=== PATIENT | female | born 1950 | race Caucasian/White ===

== ENCOUNTER 2018-10-16 06:50 | Day surgery (SDC) | payer MEDICARE ==
[~2018-10-16 06:50] MED LIST: Acetaminophen TAB* 325 MG PO PRN; Buffered Lidocaine 1% SYRIN* 1 ML/SYRINGE INTRADERM ONE
[2018-10-16] MEDS ORDERED: Midazolam* 1 MG/ML 2 ML VIAL (2 MG) ONE (08:19)
[2018-10-16 08:52] VITALS: BP 114/61
--- NOTE | 2018-10-16 09:34 | OP ---
DATE OF OPERATION: 10/16/2018. DATE OF : 1950. SURGEON: Amandeep Kendall M.D. PREOPERATIVE DIAGNOSIS: Cataract right eye with glaucoma. POSTOPERATIVE DIAGNOSIS: Cataract right eye with glaucoma. OPERATIVE PROCEDURE: Extracapsular cataract extraction with intraocular lens implant and iStent righ t eye. PROCEDURE: The patient was brought to the operating room after being given 1/2% Alcaine with epineph rine drops in the preoperative area. The eye was prepped and draped in the usual sterile fashion. S terile drape and eyelid speculum were placed. Again, topical 1/2% Alcaine with epinephrine was given . A paracentesis incision was made at the 9 o'clock position with the No.75 blade. Clear cornea inc ision 2.2 x 2.2-mm was created at the 12 o'clock position starting at the anterior limbus using the 2 .2-mm keratome. The anterior chamber was irrigated with 0.4 mL of 1% non-preservative intracameral l idocaine and filled with DisCoVisc. A capsulorrhexis was completed using the cystotome and the Utrat a forceps. Hydrodissection was performed with balanced salt solution. The lens nucleus was removed w ith the Phacoemulsification handpiece without incident. Cortex was removed with the irrigation-aspir ation handpiece. The capsular bag was re-inflated using DisCoVisc and an [id number] implant was inse rted with the shooter, followed by the two iStent inject devices placed at the 2 o'clock and 4 o'cloc k positions without difficulty. The irrigation-aspiration handpiece was used to remove all residual DisCoVisc. The eye was refilled with balanced salt solution and the wound checked and found to be wa tertight. Topical Maxitrol drops were given. [id number]/[facility] #: [id number]
[2018-10-16] MEDS ORDERED: Lidocaine 1%* 5 ML VIAL ONE (12:17)
[2018-10-16] MEDS ORDERED: Neomycin/Polymy/Dex OPTH.SUSP* MAXITROL 0.1% 5 ML ONE (12:17)
[2018-10-16] MEDS ORDERED: Phenylephrine 2.5% OPTH.SOL* 2 ML BTL ONE (12:17)
[2018-10-16] MEDS ORDERED: Lidocaine 2% EPI 1:200000 MPF*10-20 ML VIAL ONE (12:17)
[2018-10-16] MEDS ORDERED: Povidone Iodine 5% OPTH* 30 ML BTL ONE (12:17)
[2018-10-16] MEDS ORDERED: Ketorolac 0.5% OPHTH (NF) 0.5 % 5 ML BTL ONE (12:17)
[2018-10-16] MEDS ORDERED: acetaZOLAMIDE TAB* 250 MG ONE (12:17)
[2018-10-16] MEDS ORDERED: Cyclopentolate 1% OPTH.SOL* 2 ML BTL ONE (12:17)
[2018-10-16] MEDS ORDERED: Proparacaine 0.5% OPHTH.SOL* 15 ML BTL ONE (12:17)
== END 2018-10-16 08:56 | disposition home or self-care (01) ==
LOC: OREAST 06:50
PROVIDERS: ATTEND Specialist
DX: H25.11 Age-related nuclear cataract, right eye (principal); H40.1122 Primary open-angle glaucoma, left eye, moderate stage; J45.909 Unspecified asthma, uncomplicated
CPT/HCPCS: A9270-GY; C1783; J2250; V2632

== ENCOUNTER 2018-10-23 07:21 | Day surgery (SDC) | payer MEDICARE ==
[2018-10-23] MEDS ORDERED: Midazolam* 1 MG/ML 2 ML VIAL (2 MG) ONE ×2 (09:30→09:49)
[2018-10-23 10:16] VITALS: BP 131/74
[2018-10-23] MEDS ORDERED: Povidone Iodine 5% OPTH* 30 ML BTL ONE (10:44)
[2018-10-23] MEDS ORDERED: Proparacaine 0.5% OPHTH.SOL* 15 ML BTL ONE (10:44)
[2018-10-23] MEDS ORDERED: Cyclopentolate 1% OPTH.SOL* 2 ML BTL ONE (10:44)
[2018-10-23] MEDS ORDERED: Neomycin/Polymy/Dex OPTH.SUSP* MAXITROL 0.1% 5 ML ONE (10:44)
[2018-10-23] MEDS ORDERED: Lidocaine 1%* 5 ML VIAL ONE (10:44)
[2018-10-23] MEDS ORDERED: Phenylephrine 2.5% OPTH.SOL* 2 ML BTL ONE (10:44)
[2018-10-23] MEDS ORDERED: Ketorolac 0.5% OPHTH (NF) 0.5 % 5 ML BTL ONE (10:44)
[2018-10-23] MEDS ORDERED: acetaZOLAMIDE TAB* 250 MG ONE (10:44)
[2018-10-23] MEDS ORDERED: Lidocaine 2% EPI 1:200000 MPF*10-20 ML VIAL ONE (10:44)
--- NOTE | 2018-10-23 11:17 | OP ---
OPERATIVE NOTE: DATE OF OPERATION: 10/23/18 DATE OF : [birth year] SURGEON: Amandeep Kendall M.D. PREOPERATIVE DIAGNOSIS: Cataract, left eye, and glaucoma. POSTOPERATIVE DIAGNOSIS: Cataract, left eye, and glaucoma. OPERATIVE PROCEDURE: Extracapsular cataract extraction with intraocular lens implant and iStent, lef t eye. PROCEDURE: The patient was brought to the operating room after being given 1/2% Alcaine with epineph rine drops in the preoperative area. The eye was prepped and draped in the usual sterile fashion. S terile drape and eyelid speculum were placed. Again, topical 1/2% Alcaine with epinephrine was given . A paracentesis incision was made at the 3 o'clock position with the No.75 blade. Clear cornea inc ision 2.2 x 2.2-mm was created at the 6 o'clock position starting at the anterior limbus using the 2. 2-mm keratome. The anterior chamber was irrigated with 0.4 mL of 1% non-preservative intracameral li docaine and filled with DisCoVisc. A capsulorrhexis was completed using the cystotome and the Utrata forceps. Hydrodissection was performed with balanced salt solution. The lens nucleus was removed wi th the Phacoemulsification handpiece without incident. Cortex was removed with the irrigation-aspira tion handpiece. The capsular bag was re-inflated using DisCoVisc and an [id number] 18 implant was insert ed with the shooter. Prior to capsulorrhexis, the pupil was quite small, so a Malyugin ring was used to dilate the pupil, removed after the insertion of the implant and the iStent. The implant was fol lowed by an iStent inject G2M. It was inserted into the trabecular meshwork at the 2 and 4 o'clock p ositions. The irrigation-aspiration handpiece was used to remove all residual DisCoVisc. The eye wa s refilled with balanced salt solution and the wound checked and found to be watertight. Topical Max itrol drops were given. [id number]/[facility] #: [id number]
== END 2018-10-23 10:21 | disposition home or self-care (01) ==
LOC: OREAST 07:21
PROVIDERS: ATTEND Specialist
DX: H25.12 Age-related nuclear cataract, left eye (principal); H40.1121 Primary open-angle glaucoma, left eye, mild stage; J45.909 Unspecified asthma, uncomplicated; F32.9 Major depressive disorder, single episode, unspecified
CPT/HCPCS: A9270-GY; C1783; J2250; V2632

== ENCOUNTER 2019-08-23 10:58 | Emergency (ER) | payer MEDICARE ==
--- OUTSIDE RECORDS SUMMARY | 2019-08-23 11:07 | XMS REPORT | Continuity of Care Document ---
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 Medicine Problems Description No Information Available Social History Type Date Description Comments Sex Unknown Tobacco Use Start: Unknown Never Smoked Cigarettes Smoking Status Reviewed: 07/23/19 Never Smoked Cigarettes ETOH Use 7-10 alcoholic beverages per week Tobacco Use Start: Unknown Patient has never smoked Recreational Drug Use Denies Drug Use Exercise Type/Frequency Water Fitness 2-3 times per week for 45-60 minutes Exercise Type/Frequency Weight Training 1-2 times per week for 30 minutes Allergies, Adverse Reactions, Alerts Active Allergies Reaction Severity Comments Date NKDA 09/12/2013 Pollen 06/19/2019 Mold 06/19/2019 Tomatoes 06/19/2019 Soy 06/19/2019 Adhesive rash Mild 06/25/2019 Medications Active Medications SIG Qnty Indications Ordering Provider Date Trazodone HCL 25-50 mg daily by Unknown mouth for insomnia Diclofenac Sodium one tablet by Unknown 50mg mouth as needed Tablets SM Omeprazole Take one tablet Unknown 20mg Tablets by mouth daily Lamotrigine 300 MG Take one tablet Unknown by mouth daily Desvenlafaxine ER Take two tablets Unknown 100mg by mouth daily Tablets ER 24HR Azithromycin Take one tablet Unknown 250mg Tablets by mouth twice weekly Acetaminophen-Codeine take 1-2 tablets Unknown #3 by mouth for pain 300-30mg Tablets as needed Vitamin D3 Take one capsule Unknown 1000Unit by mouth daily Capsules Acidophilus Take one capsule Unknown Capsules by mouth daily Claritin 1 by mouth every Unknown 10mg Capsules day Multivitamins 1 by mouth every Unknown Capsules day Medications Administered in Office Medication SIG Qnty Indications Ordering Provider Date Celestone 3 mg and 3mg Sammy Liu MD 11/26/2018 Injection Celestone 3 mg and 3mg Sammy Liu MD 11/26/2018 Injection Depomedrol 80MG Betsy Soriano M.D. 10/09/2013 Injection Immunizations Description No Information Available Vital Signs Date Vital Result Comment 07/23/2019 10:03am Height 60 inches 5'0" Weight 158.00 lb Heart Rate 83 /min BP Systolic 116 mmHg BP Diastolic 74 mmHg Body Temperature 96.8 F O2 % BldC Oximetry 98 % BMI (Body Mass Index) 30.9 kg/m2 06/25/2019 1:12pm Height 60 inches 5'0" Weight 163.50 lb Heart Rate 79 /min BP Systolic 133 mmHg BP Diastolic 83 mmHg Body Temperature 97.9 F O2 % BldC Oximetry 97 % BMI (Body Mass Index) 31.9 kg/m2 Results Test Date Facility Test Result H/L Range Note Laboratory test 06/27/2019 [facility] CRP High 4.90 mg/L High <2.[address] [place] [address] [phone] Thyroperoxidase AB 1.08 IU/mL Normal <9 Thyroglobulin AB 0.0 IU/mL <4.0 Hemoglobin A1c (Glyco HGB) 5.8 % High 4.0-5.6 1 Copper, Serum 1.21 g/mL 0.75-1.45 2 Zinc Serum 0.78 g/mL 0.66-1.10 3 Heavy Metal Blool 06/27/2019 [facility] Arsenic 3 ng/mL 0-[address] [place] [address] [phone] Lead 1.1 g/dL 0.0-4.9 5 Mercury <1 ng/mL 0-9 6 Cadmium 0.2 ng/mL 0.0-4.[address] Address See Comment 8 [facility] [address] [facility] Guardian First Name HEATHER Yaoan Last Name JOSE MARTIN Venous/Capillary Heavy Metals Venous Patient Race WHITE Submitting Laboratory 9 Anti Gliadin Igg And Iga 06/27/2019 [facility] Gliadin IgG < 10.0 U 10 AB [address] [place] [address] [phone] Gliadin IgA <10.0 U 11 Celiac Hla 06/27/2019 [facility] Hla-Dqa1 SEE BELOW 12 [address] [place] [address] [phone] Hla-DQB1 SEE BELOW 13 Celiac Gene Pairs Present? Equivocal Celiac Gene Interpretation See Comment 14 Laboratory test 06/25/2019 [facility] Hemoglobin A1c <pending> finding [address] [facility] (Glyco HGB) [place] [address] [phone] CRP High Sensitivity <pending> Anti-Thyroid 06/25/2019 [facility] Thyroperoxidase AB <pending> Antibodies Screen [address] [place] [address] [phone] Thyroglobulin AB <pending> Laboratory test 06/25/2019 [facility] Copper, Serum <pending> finding [address] [place] [address] [phone] Zinc Serum <pending> 1 Therapeutic target for the treatment of diabetes mellitus patients is <7% HBA1C, and in selective patients <6.0%. Please refer to [place] [employer] diabetic care guidelines for further information. 2 ADDITIONAL INFORMATION This test was developed and its performance characteristics determined by [facility] in a manner consistent with CLIA requirements. This test has not been cleared or approved by the U.S. Food and Drug Administration. Test Performed by: [facility] - [address] [address] Cmo & President: Marvin Rojas M.D. Ph.D.; CLIA# [id number] 3 ADDITIONAL INFORMATION This test was developed and its performance characteristics determined by [facility] in a manner consistent with CLIA requirements. This test has not been cleared or approved by the U.S. Food and Drug Administration. Test Performed by: [facility] [employer] [place] [address] Cmo & President: Marvin Rojas M.D. Ph.D.; CLIA# [id number] 4 ADDITIONAL INFORMATION This test was developed and its performance characteristics determined by [facility] in a manner consistent with CLIA requirements. This test has not been cleared or approved by the U.S. Food and Drug Administration. 5 ADDITIONAL INFORMATION Testing performed by Inductively Coupled Plasma-Mass Spectrometry (ICP-MS). This test was developed and its performance characteristics determined by [facility] in a manner consistent with CLIA requirements. This test has not been cleared or approved by the U.S. Food and Drug Administration. 6 ADDITIONAL INFORMATION This test was developed and its performance characteristics determined by [facility] in a manner consistent with CLIA requirements. This test has not been cleared or approved by the U.S. Food and Drug Administration. 7 ADDITIONAL INFORMATION This test was developed and its performance characteristics determined by [facility] in a manner consistent with CLIA requirements. This test has not been cleared or approved by the U.S. Food and Drug Administration. 8 RESULT: [address] Test Performed by: [facility] [employer] [place] [address] [employer]mo & President: Marvin Rojas M.D. Ph.D.; CLIA# [id number] 10 REFERENCE VALUE <20.0 (Negative) Test Performed by: [facility] [employer] - [facility] [address] [place] [address] Cmo & President: Marvin Rojas M.D. Ph.D.; CLIA# [id number] 11 REFERENCE VALUE <20.0 (Negative) 12 RESULT: 02:01,04:01 REFERENCE VALUE Not Applicable 13 RESULT: 02:02,04:02 DQ Serologic Equivalent: 2,4 REFERENCE VALUE Not Applicable 14 While the patient lacks the gene pairs usually seen in celiac disease, there are rare exceptions in which celiac disease can occur with only one half of the gene pair (1% of all celiac) making celiac disease very unlikely. However, these genes can also be present in the normal population. ADDITIONAL INFORMATION Method: Molecular typing of HLA antigens performed using reverse SSOP and/or SSP methods, reported as serological equivalents and low to medium resolution molecular values. Test Performed by: [facility] - [address] [address] Cmo & President: Marvin Rojas M.D. Ph.D.; CLIA# [id number] Procedures Date Code Description Status 06/04/2019 77515 Shave Skin Lesion <.6CM Trunk/Arm/Leg Completed Medical Devices Description No Information Available Encounters Type Date Location Provider Dx Diagnosis Office Visit 06/25/2019 [facility] Snow Le, MEGHA R53.83 Other fatigue 1:00p [facility] M79.7 Fibromyalgia G89.4 Chronic pain syndrome K58.2 Mixed irritable bowel syndrome F32.9 Major depressive disorder, single episode, unspecified Office Visit 06/04/2019 10:30a [facility] Amy Roman, L82.1 Other seborrheic MD keratosis L81.4 Other melanin hyperpigmentation D22.5 Melanocytic nevi of trunk L73.8 Other specified follicular disorders L30.9 Dermatitis, unspecified D22.61 Melanocytic nevi of right upper limb, including shoulder Assessments Date Code Description Provider 07/23/2019 R73.03 Prediabetes Snow Rey, PROOFSHEET CORRECTOR 07/23/2019 R53.83 Other fatigue Snow Le, PROOFSHEET CORRECTOR 07/23/2019 M79.7 Fibromyalgia Snow Le, PROOFSHEET CORRECTOR 07/23/2019 K58.2 Mixed irritable bowel syndrome Snow Le, PROOFSHEET CORRECTOR 07/23/2019 K21.9 Gastro-esophageal reflux disease without Snow Le, PROOFSHEET CORRECTOR esophagitis 07/23/2019 R32 Unspecified urinary incontinence Snow Le, PROOFSHEET CORRECTOR 06/25/2019 R53.83 Other fatigue Snow Le, PROOFSHEET CORRECTOR 06/25/2019 M79.7 Fibromyalgia Snow Le, PROOFSHEET CORRECTOR 06/25/2019 G89.4 Chronic pain syndrome Snow Le, PROOFSHEET CORRECTOR 06/25/2019 K58.2 Mixed irritable bowel syndrome Snow Le, PROOFSHEET CORRECTOR 06/25/2019 F32.9 Major depressive disorder, single episode, Snow Le , PROOFSHEET CORRECTOR unspecified 06/04/2019 L82.1 Other seborrheic keratosis Amy Roman MD 06/04/2019 L81.4 Other melanin hyperpigmentation Amy Roman MD 06/04/2019 D22.5 Melanocytic nevi of trunk Amy Roman MD 06/04/2019 L73.8 Other specified follicular disorders Amy Roman MD 06/04/2019 L30.9 Dermatitis, unspecified Amy Roman MD 06/04/2019 D22.61 Melanocytic nevi of right upper limb, including Amy Roman MD shoulder Plan of Treatment 07/23/2019 - Snow Le, NPR73.03 PrediabetesFollow up:please join the portal Follow up after endoscopy - 45 minutes Call and make an appointment - Recommendations:Recommend low carb diet. 30- 50 carbs a day. Vitamin D3 K2 2000 units daily Zinc 15 mg yorifC04.83 Other fatigueRecommendations:Recommend - Continue strict gluten free dietM79.7 FibromyalgiaRecommendations:Recommend at modify AIP - Gluten free 6 months Add back in gluten free grains, nuts &amp ; seeds. Recommend: The Fibro manual - Research Low dose naltrexone - SBI - orthomolecular https://holisticprimarycare.net/latest-articles/1974-serum- miwcvav-xgvnknwgwtybvs-cniibju-soudtvvl-lltowfzfdd-ut-patients.htmlK58.2 Mixed irritable bowel syndromeRecommendations:If the digestive system is working properly, we have maximum absorption of nutrients, resulting in energy and vitality. When the digestive system is not working well, we have bloating, systemic inflammation, skin rashes, food sensitivities, constipation, abdominal discomfort, fatigue, and many other diverse non-specific symptoms such as headaches, poor mood, joint pain, muscle fatigue, etc. The digestive tract may become compromised with a diet high in refined sugar, a diet low in fiber, as well asantibiotics, medications, stress, parasitic infections, bacterial infections, nutrient deficiencies,and alcohol use. These mechanisms may promote inflammation of the intestinal tract and lead to increased intestinal permeability. What is SIBO? SIBO occurs when the bacteria that normally live in the colon move backwards, up into the small intestine (where they are not supposed to be in high numbers) and an overgrowth develops. It can also occur when the small amount of bacteria normally present in the small intestines overgrows. When the bacteria are in the small intestine, THEY start digesting and fermenting your food (instead of YOU digesting and absorbing your food), creating gas, bloating, and malabsorption for the host. What are the symptoms? Extreme bloating (many people say they look 6months ) Constipation, diarrhea, or both Abdominal pain, tenderness, or discomfort Burping and/or farting Nausea Acid reflux Gastroparesis (like food is just sitting in stomach, won??t go down-feels like a brick in the stomach) Food sensitivities or intolerances Leaky gut Anxiety & depression (very common for SIBO ?? the LPS in the bacterial cell wall (endotoxins) increase inflammatory cytokines, which affect mood) Brain fog How do you test for SIBO? Unfortunately, insurance doesn't tend to cover this test we offer in the office. We use the company [employer] and it will test for the two types of SIBO - Methane and Hydrogen. The cost is $179. We recommend you send the test in with your payment and can ask the company for a bill that you can submit to your insurance. You can pay the testin full or they will let you split the payment into 4 payments. Please contact the company if you have any questions and review the handout we have provided for you. At this time you want to hold off. You want to think about it.K21.9 Gastro-esophageal reflux disease without esophagitisReferral: Jermain Pina MD, [id number] Unspecified urinary incontinenceReferral :Raegan Reynaga, PT, OCS, Physical Therapist Functional Status Description No Information Available Mental Status Description No Information Available Referrals Refer to Dr Reason for Referral Status Appt Date Jermain Pina MD Created [address] [place] [address] [phone] Raegan Reynaga, PT, OCS Created [address] [place], [place] [id number] [phone]
--- OUTSIDE RECORDS SUMMARY | 2019-08-23 11:07 | XMS REPORT | Continuity of Care Document ---
:1950 External Reference #:[id number] Author Name Margoth Sommer NP (transmitted by agent of provider Carmel Arciniega) Address [address] [place] [address] Care Team Providers Name Role Phone Snow Jones DO - Family Care Team Information [employer] Medicine Problems Active Problems Provider Date Fibromyalgia Margoth Sommer NP Onset: 07/30/2019 Mild depression Margoth Sommer NP Onset: 07/30/2019 Kidney stone Margoth Sommer NP Onset: 07/30/2019 Note: left side x1, kidneys stones have passed x4 Glaucoma Margoth Sommer NP Onset: 07/30/2019 Note: laser done Social History Type Date Description Comments Sex Unknown Tobacco Use Start: Unknown Never Smoked Cigarettes Smoking Status Reviewed: 07/30/19 Never Smoked Cigarettes ETOH Use 7-10 alcoholic [...] Medications SIG Qnty Indications Ordering Provider Date SM Omeprazole Take one tablet Unknown 07/30/2019 20mg Tablets by mouth daily DR Azithromycin Take one tablet Unknown 07/30/2019 250mg Tablets by mouth twice weekly Trazodone HCL 25-50 mg daily by Unknown mouth for insomnia Diclofenac Sodium one tablet by Unknown 50mg mouth as needed Tablets DR Lamotrigine 300 MG Take one tablet Unknown by mouth daily Desvenlafaxine ER Take two tablets Unknown 100mg by mouth daily Tablets ER 24HR Acetaminophen-Codeine take 1-2 tablets Unknown #3 by [...] Available Vital Signs Date Vital Result Comment 07/30/2019 9:26am Height 60 inches 5'0" Weight 160.00 lb Heart Rate 67 /min BP Systolic 123 mmHg BP Diastolic 75 mmHg O2 % BldC Oximetry 99 % BMI (Body Mass Index) 31.2 kg/m2 07/23/2019 10:03am Height 60 inches 5'0" Weight 158.00 lb Heart Rate 83 /min BP Systolic 116 mmHg BP Diastolic 74 mmHg Body Temperature 96.8 F O2 % BldC Oximetry 98 % BMI (Body Mass Index) 30.9 kg/m2 Results Test Acquired Date Facility Test Result H/L Range Note Laboratory test 07/30/2019 [facility] Troponin-I <pending> finding 101 (TnI) [place] [address] [phone] Ferritin <pending> Laboratory test 06/27/2019 [facility] CRP High 4.90 mg/L High <2.[address] [place] [address] [phone] Thyroperoxidase AB 1.08 IU/mL Normal <9 Thyroglobulin AB 0.0 IU/mL <4.0 Hemoglobin A1c (Glyco HGB) 5.8 % High 4.0-5.6 1 Copper, Serum 1.21 g/mL 0.75-1.45 2 Zinc Serum 0.78 g/mL 0.66-1.10 3 Heavy Metal Blool 06/27/2019 [facility] Arsenic 3 ng/mL 0-12 4 [address] [place] [address] [phone] Lead 1.1 g/dL 0.0-4.9 5 Mercury <1 ng/mL 0-9 6 Cadmium 0.2 ng/mL 0.0-4.[address] Address See Comment 8 [facility] [address] [facility] DANIELE Guardian First Name HEATHER Guardian Last Name JOSE MARTIN Venous/Capillary Heavy Metals Venous Patient Race WHITE Submitting Laboratory 9 Anti Gliadin Igg And Iga 06/27/2019 [facility] Gliadin IgG < 10.0 U [address] [place] [address] [phone] Gliadin IgA <10.0 U 11 Celiac Hla 06/27/2019 [facility] [id number] SEE BELOW [address] [place] [address] [phone] [id number] SEE BELOW 13 Celiac Gene Pairs Present? Equivocal Celiac Gene Interpretation See Comment 14 Laboratory test 06/25/2019 [facility] Hemoglobin A1c <pending> finding [address] [place] [address] (Glyco HGB) [place] [address] [phone] CRP High Sensitivity <pending> Anti-Thyroid 06/25/2019 [facility] Thyroperoxidase AB <pending> Antibodies Screen [address] [place] [address] [phone] Thyroglobulin AB <pending> Laboratory test 06/25/2019 [facility] Copper, Serum <pending> finding [address] [place] [address] [phone] Zinc Serum <pending> 1 Therapeutic target for the treatment of diabetes mellitus patients is <7% HBA1C, and in selective patients <6.0%. Please refer to [place] [employer] diabetic care guidelines for further information. 2 ADDITIONAL INFORMATION This test was developed and its performance characteristics determined by [facility] in a manner consistent with CLIA requirements. This test has not been cleared or approved by the U.S. Food and Drug Administration. Test Performed by: [facility] [place] [address] Drywaller: Marvin Rojas M.D. Ph.D.; CLIA# [id number] 3 ADDITIONAL INFORMATION This test was developed and its performance characteristics determined by [facility] in a manner consistent with CLIA requirements. This test has not been cleared or approved by the U.S. Food and Drug Administration. Test Performed by: [facility] [place] [address] Drywaller: Marvin Rojas M.D. Ph.D.; CLIA# [id number] 4 ADDITIONAL INFORMATION This test was developed and its performance characteristics determined by [facility] in a manner consistent with CLIA requirements. This test has not been cleared or approved by the U.S. Food and Drug Administration. 5 ADDITIONAL INFORMATION Testing performed by Inductively Coupled Plasma-Mass Spectrometry (ICP-MS). This test was developed and its performance characteristics determined by [facility] in a manner consistent with CLIA requirements. This test has not been cleared or approved by the U.S. Food and Drug Administration. 6 ADDITIONAL INFORMATION This test was developed and its performance characteristics determined by [facility] in a manner consistent with CLIA requirements. This test has not been cleared or approved by the U.S. Food and Drug Administration. 7 ADDITIONAL INFORMATION This test was developed and its performance characteristics determined by [facility] in a manner consistent with CLIA requirements. This test has not been cleared or approved by the U.S. Food and Drug Administration. 8 RESULT: [address] Test Performed by: [facility] [place] [address] Drywaller: Marvin Rojas M.D. Ph.D.; CLIA# [id number] 10 REFERENCE VALUE <20.0 (Negative) Test Performed by: [facility] [place] [address] Drywaller: Marvin Rojas M.D. Ph.D.; CLIA# [id number] 11 REFERENCE VALUE <20.0 (Negative) 12 RESULT: [...] medium resolution molecular values. Test Performed by: [address] [address] Drywaller: Marvin Rojas M.D. Ph.D.; [facility]# [id number] Procedures Date Code Description Status 06/04/2019 98012 Shave Skin Lesion <.6CM Trunk/Arm/Leg Completed Medical Devices Description No Information Available Encounters Type Date Location Provider Dx Diagnosis Office Visit 06/25/2019 [facility] Snow Rey, REALTIME REPORTER R53.83 Other fatigue 1:00p [facility] M79.7 Fibromyalgia G89.4 Chronic pain syndrome K58.2 Mixed irritable bowel syndrome F32.9 Major depressive disorder, single episode, unspecified Office Visit 06/04/2019 10:[facility] Amy Roman, L82.1 Other seborrheic MD keratosis L81.4 Other melanin hyperpigmentation D22.5 Melanocytic nevi of trunk L73.8 Other specified follicular disorders L30.9 Dermatitis, unspecified D22.61 Melanocytic nevi of right upper limb, including shoulder Assessments Date Code Description Provider 07/30/2019 K21.9 Gastro-esophageal reflux disease without Margoth Sommer, REALTIME REPORTER esophagitis 07/23/2019 R73.03 Prediabetes Snow Le, REALTIME REPORTER 07/23/2019 R53.83 Other fatigue Snow Le, REALTIME REPORTER 07/23/2019 M79.7 Fibromyalgia Snow Le, REALTIME REPORTER 07/23/2019 K58.2 Mixed irritable bowel syndrome Snow Le, REALTIME REPORTER 07/23/2019 K21.9 Gastro-esophageal reflux disease without Snow Le, REALTIME REPORTER esophagitis 07/23/2019 R32 Unspecified urinary incontinence Snow Le, REALTIME REPORTER 06/25/2019 R53.83 Other fatigue Snow Le, REALTIME REPORTER 06/25/2019 M79.7 Fibromyalgia Snow Le, REALTIME REPORTER 06/25/2019 G89.4 Chronic pain syndrome Snow Le, REALTIME REPORTER 06/25/2019 K58.2 Mixed irritable bowel syndrome Snow Le, REALTIME REPORTER 06/25/2019 F32.9 Major depressive disorder, single episode, Snow Rey , REALTIME REPORTER unspecified 06/04/2019 L82.1 Other seborrheic keratosis Amy Roman MD 06/04/2019 L81.4 Other melanin hyperpigmentation Amy Roman MD 06/04/2019 D22.5 Melanocytic nevi of trunk Amy Roman MD 06/04/2019 L73.8 Other specified follicular disorders Amy Roman MD 06/04/2019 L30.9 Dermatitis, unspecified Amy Roman MD 06/04/2019 D22.61 Melanocytic nevi of right upper limb, including Amy Roman MD shoulder Plan of Treatment No Information Available Functional Status Description No Information Available Mental Status Description No Information Available Referrals Refer to Dr Reason for Referral Status Appt Date Jermain Pina MD Sent [address] [place] [id number] [phone] Raegan Reynaga, PT, OCS Sent [address] [place] [address] [phone]
--- OUTSIDE RECORDS SUMMARY | 2019-08-23 11:07 | XMS REPORT | Continuity of Care Document ---
:1950 External Reference #:[id number] Author Name Snow Jones, DO Address [address] [place] [address] Problems Active Problems Provider Date Pneumonia Onset: 12/30/2018 Osteopenia Onset: 07/11/2018 Intrinsic asthma without status asthmaticus Onset: 12/04/2014 Inactive Problems Eruption Onset: 05/05/2019 Inactive: 05/05/2019 Body mass index 30+ - obesity Onset: 04/29/2019 Inactive: 04/29/2019 Adult health examination Onset: 04/29/2019 Inactive: 04/29/2019 Social History Type Date Description Comments Sex Unknown Allergies, Adverse Reactions, Alerts Active Allergies Reaction Severity Comments Date High Dose Flu arm swelling x 1 week Moderate 06/06/2019 Medications Active Medications SIG Qnty Indications Ordering Provider Date CBD Oil Snowiggy Hullleigha, 08/14/2019 DO Multivitamin Adults one tab once Snow Bertoalex, 08/14/2019 daily DO Tablets Vitamin D3 one, once daily Snow Bertoalex, 08/14/2019 1000Unit DO Capsules Azithromycin 1 twice weekly Unknown 04/04/2019 250mg Oral Tablets Diclofenac Sodium Take 1 Tablet By 90tabs Manda Herrera, 12/26/2018 50mg Mouth Daily MD Tablets Lamotrigine Oral; Take 3 270tabs Unknown 11/26/2018 100mg Tablets By Mouth Tablets AT Bedtime Omeprazole Oral; Take 1 90caps Unknown 11/26/2018 20mg Capsule By Mouth Capsules DR Every Day Venlafaxine HCL ER Oral; Take 2 180caps Unknown 11/26/2018 Capsules By 150mg Caps ER 24HR Mouth Daily Trazodone HCL Oral; Take 1 90tabs Unknown 05/30/2018 50mg tablet by mouth Tablets at bedtime Tylenol With Codeine 1 twice daily 60tabs Unknown 03/14/2017 #3 prn Oral; one 300-30mg Tablets tablet twice daily prn for moderate pain, 2 tablets po twice daily for severe pain. Claritin 1 daily Oral 30tabs Unknown 08/22/2015 10mg Tablets History Medications Prednisone Oral 17tabs Unknown 05/05/2019 - 08/12/2019 20mg Tablets Azithromycin 1 twice weekly Unknown 04/04/2019 - 04/04/2019 1gm Packet Oral Immunizations CPT Code Status Date Vaccine Lot # [id number] Given 07/15/2019 Flu High Dose [id number] 31239 Given 07/23/2018 Influenza Virus Vaccine, Quadrivalent, Split Virus, Im Use 0.5ML 70417 Given 07/23/2018 Flu < 65 years 00323 Given 07/23/2018 Influenza Virus Vaccine, Quadrivalent, Split, Preservative Free 37838 Given 07/23/2018 Flumist 86992 Given 07/23/2018 Flu High Dose 82078 Given 07/23/2018 Influenza Virus Vaccine, Split, Preserv Free, Intradermal Use 89776 Given 06/26/2017 Influenza Virus Vaccine, Split, Preserv Free, Intradermal Use 60212 Given 06/26/2017 Flu High Dose 57137 Given 06/26/2017 Flumist 30232 Given 06/26/2017 Influenza Virus Vaccine, Quadrivalent, Split, Preservative Free 10821 Given 06/26/2017 Flu < 65 years 57912 Given 06/26/2017 Influenza Virus Vaccine, Quadrivalent, Split, Im Use 0.25ML 03468 Given 06/26/2017 Influenza Virus Vaccine, Quadrivalent, Split, Im Use 0.25ML 79920 Given 06/26/2017 Influenza Virus Vaccine, Quadrivalent, Split, Im Use 0.25ML 07275 Given 07/17/2016 Influenza Virus Vaccine, Split, Preserv Free, Intradermal Use 45792 Given 07/17/2016 Flu High Dose 77533 Given 07/17/2016 Flumist 23261 Given 07/17/2016 Influenza Virus Vaccine, Quadrivalent, Split, Preservative Free 96836 Given 07/17/2016 Flu < 65 years 22588 Given 07/17/2016 Influenza Virus Vaccine, Quadrivalent, Split, Im Use 0.25ML 16589 Given 07/17/2016 Influenza Virus Vaccine, Quadrivalent, Split, Im Use 0.25ML 72444 Given 07/17/2016 Influenza Virus Vaccine, Quadrivalent, Split, Im Use 0.25ML 88268 Given 11/05/2015 Pneumovax - for >=2years - PPSV23 29782 Given 11/05/2015 Td >=7yrs Tenivac/Grifols Td 55033 Given 08/09/2015 Prevnar 13 34484 Given 08/02/2015 Flu High Dose 82993 Given 08/02/2015 Flumist 55473 Given 08/02/2015 Influenza Virus Vaccine, Quadrivalent, Split, Preservative Free 29369 Given 08/02/2015 Flu < 65 years 58646 Given 08/02/2015 Influenza Virus Vaccine, Quadrivalent, Split Virus, Im Use 0.5ML 16901 Given 02/16/2015 Influenza Virus Vaccine, Quadrivalent, Split, Im Use 0.25ML 00509 Given 06/27/2013 Influenza Virus Vaccine, Quadrivalent, Split, Im Use 0.25ML 93586 Given 06/27/2013 Influenza Virus Vaccine, Quadrivalent, Split, Im Use 0.25ML 15148 Given 06/27/2013 Influenza Virus Vaccine, Quadrivalent, Split, Im Use 0.25ML 56287 Given 06/27/2013 Influenza Virus Vaccine, Quadrivalent, Split, Im Use 0.25ML 83130 Given 06/27/2013 Flu < 65 years 92314 Given 06/27/2013 Influenza Virus Vaccine, Quadrivalent, Split, Preservative Free 52748 Given 06/27/2013 Flumist 69868 Given 06/27/2013 Flu High Dose 29152 Given 06/27/2013 Influenza Virus Vaccine Split Virus Intramuscular Use 0.5ML 00489 Given 02/06/2013 Zoster Shingles Vaccine For Subcutaneous Injection 68426 Given 12/24/2012 Tdap - Boostrix/Adacel 48426 Given 07/05/2012 Influenza Virus Vaccine, Quadrivalent, Split, Im Use 0.25ML 16897 Given 07/05/2012 Influenza Virus Vaccine, Quadrivalent, Split, Im Use 0.25ML 72506 Given 07/05/2012 Influenza Virus Vaccine, Quadrivalent, Split, Im Use 0.25ML 25630 Given 07/05/2012 Flu < 65 years 50535 Given 07/05/2012 Influenza Virus Vaccine, Quadrivalent, Split, Preservative Free 26573 Given 07/05/2012 Flumist 95332 Given 07/05/2012 Flu High Dose 71034 Given 07/05/2012 Influenza Virus Vaccine Split Virus Intramuscular Use 0.5ML 51282 Given 07/20/2010 Influenza Virus Vaccine, Quadrivalent, Split, Im Use 0.25ML 22426 Given 07/20/2010 Influenza Virus Vaccine, Split Virus, Preservative Free Im 0.5ML 74614 Given 07/01/2003 Pneumovax - for >=2years - PPSV23 06040 Given 07/01/2003 Pneumovax - for >=2years - PPSV23 Vital Signs Date Vital Result Comment 08/14/2019 11:26am BP Systolic 122 mmHg BP Diastolic 78 mmHg Height 58.25 inches 4'10.25" Weight 159.00 lb Heart Rate 77 /min Body Temperature 96.8 F O2 % BldC Oximetry 98 % BMI (Body Mass Index) 32.9 kg/m2 05/05/2019 1:25pm BP Systolic 108 mmHg Height 58.00 inches 4'10.00" Weight 167.00 lb Heart Rate 82 /min Body Temperature 98.3 F O2 % BldC Oximetry 100 % BMI (Body Mass Index) 34.90 kg/m2 Results Test Acquired Date Facility Test Result H/L Range Note Lymph# 05/06/2019 N2N/CCD Import Lymph# 0.7 Low 1.0-4.8 10_3/ul 10 3/ul Lymph% 05/06/2019 N2N/CCD Import Lymph% 10.9 % Low 20 - 45 % MCH 05/06/2019 N2N/CCD Import MCH 30 pg 27-31 pg MCHC 05/06/2019 N2N/CCD Import MCHC 33 g/dL 31-36 g/dL MCV 05/06/2019 N2N/CCD Import MCV 89 fL 80-97 fL [place]# 05/06/2019 N2N/CCD Import [place]# 0.1 0-0.8 10 10_3/ul 3/ul [place]% 05/06/2019 N2N/CCD Import [place]% 2.0 % 0 - 10 % MPV 05/06/2019 N2N/CCD Import MPV 9.2 fL 7.4-10.4 fL Neut# 05/06/2019 N2N/CCD Import Neut# 5.3 1.5-7.7 10_3/ul 10 3/ul Neut% 05/06/2019 N2N/CCD Import Neut% 86.2 % High 45 - 70 % NRBC# 05/06/2019 N2N/CCD Import NRBC# 0.0 10_3/ul NRBC% 05/06/2019 N2N/CCD Import NRBC% 0.1 _ Platelets 05/06/2019 N2N/CCD Import Platelets 239 150-450 10_3/uL 10 3/uL Potassium 05/06/2019 N2N/CCD Import Potassium 4.6 mmol/L 3.5-5.0 mmol/L Protein, Total 05/06/2019 N2N/CCD Import Protein, Total 6.8 g/dL 6.4- 8.9 g/dL RBC 05/06/2019 N2N/CCD Import RBC 4.71 3.70-4.87 10_6_/uL 10 6 /uL RDW 05/06/2019 N2N/CCD Import RDW 14 % 10-15 % Sodium 05/06/2019 N2N/CCD Import Sodium 138 mmol/L 135-145 mmol/L TSH 05/06/2019 N2N/CCD Import TSH 1.47 0.34-5.60 mcIU/mL mcIU/mL Vitamin B12 05/06/2019 N2N/CCD Import Vitamin B12 336 pg/mL 180-914 pg/mL Vitamin D, 25 05/06/2019 N2N/CCD Import Vitamin D, 25 28.4 ng/mL 20-50 ng/mL WBC 05/06/2019 N2N/CCD Import WBC 6.1 3.5-10.8 10_3/uL 10 3/uL A/G Ratio 05/06/2019 N2N/CCD Import A/G Ratio 2.4 _ 1-3 Albumin 05/06/2019 N2N/CCD Import Albumin 4.8 g/dL 3.2-5.2 g/dL Alk Phos 05/06/2019 N2N/CCD Import Alk Phos 86 U/L 34-104 U/L Alt 05/06/2019 N2N/CCD Import Alt 39 U/L 7-52 U/L Anion Gap 05/06/2019 N2N/CCD Import Anion Gap 9 mmol/L 2-11 mmol/L Ast 05/06/2019 N2N/CCD Import Ast 26 U/L 13-39 U/L Baso# 05/06/2019 N2N/CCD Import Baso# 0.0 0-0.2 10 10_3/ul 3/ul Baso% 05/06/2019 N2N/CCD Import Baso% 0.5 % 0 - 2 % Bilirubin Total 05/06/2019 N2N/CCD Import Bilirubin Total 0.40 mg/dL 0.2 -1.0 mg/dL BUN 05/06/2019 N2N/CCD Import BUN 26 mg/dL High 6-24 mg/dL BUN/Creat Ratio 05/06/2019 N2N/CCD Import BUN/Creat Ratio 32.1 _ High 8- 20 Calcium 05/06/2019 N2N/CCD Import Calcium 9.5 mg/dL 8.6-10.3 mg/dL Chloride 05/06/2019 N2N/CCD Import Chloride 107 mmol/L 101-111 mmol/L Co2 05/06/2019 N2N/CCD Import Co2 22 mmol/L 22-32 mmol/L Creatinine 05/06/2019 N2N/CCD Import Creatinine 0.81 mg/dL 0.51-0.95 mg/dL Eosin# 05/06/2019 N2N/CCD Import Eosin# 0.0 0-0.6 10 10_3/ul 3/ul Eosin% 05/06/2019 N2N/CCD Import Eosin% 0.4 % 0 - 5 % GFR Afr Amer 05/06/2019 N2N/CCD Import GFR Afr Amer 85.3 _ >60 GFR Non Afr 05/06/2019 N2N/CCD Import GFR Non Afr 70.5 _ >60 Amer Amer Globulin 05/06/2019 N2N/CCD Import Globulin 2.0 g/dL 2-4 g/dL Glucose 05/06/2019 N2N/CCD Import Glucose 135 mg/dL High 70-100 mg/dL Hematocrit 05/06/2019 N2N/CCD Import Hematocrit 42 % 35-47 % Hemoglobin 05/06/2019 N2N/CCD Import Hemoglobin 13.9 g/dL 12.0-16.0 g/dL [place] 04/29/2019 N2N/CCD Import [place] 04/04/19 [facility] 04/04/2019 N2N/CCD Import [place] 04/04/19 [facility] 04/04/2019 N2N/CCD Import [facility] 04/04/19 Procedures Description No Information Available Medical Devices Description No Information Available Encounters Type Date Location Provider Dx Diagnosis Office Visit 08/14/2019 [facility] Snow Jones, DO F33.8 Other recurrent 11:30a depressive disorders M79.7 Fibromyalgia N39.46 Mixed incontinence 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 K21.9 Gastro-esophageal reflux disease without esophagitis Z68.32 Body mass index (BMI) 32.0-32.9, adult Assessments Date Code Description Provider 08/14/2019 F33.8 Other recurrent depressive disorders Snow Jones, DO 08/14/2019 M79.7 Fibromyalgia Snow Jones, DO 08/14/2019 N39.46 Mixed incontinence Snow Jones, DO 08/14/2019 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] Snow Jones, DO subclasses 08/14/2019 K21.9 Gastro-esophageal reflux disease without Snow Jones, DO esophagitis 08/14/2019 Z68.32 Body mass index (BMI) 32.0-32.9, adult Snow Jones, Plan of Treatment 08/14/2019 - Snow Jones, DOF33.8 Other recurrent depressive disordersComments:generally mood is good on current meds and plan is to ccuscogpZ75.7 FibromyalgiaComments:Pain well controlled for the most part with current meds and regular ffpasyhuK03.46 Mixed incontinenceNew Orders:Physical Therapy Evaluate And Treat, Ordered: 08/14/19Comments:long issue with this - referral to pelvic floor PT and discuss with her pnzelslniM42.3 Selective deficiency of immunoglobulin G [IgG] subclassesComments:doing well and managed by hfeowzijsggdO27.9 Gastro-esophageal reflux disease without esophagitisComments:scheduled to get a scopeEKG done, shows changes - notably q waves in III and aVFthese have been present in the past on her EKGs and there are no other changesPt has no syptoms of chest pain, palpitations, SOB, dizziness, LE edemaI was not asked to do pre-op, just an EKGbut I feel she can move forward with the LcqkkatpsA83.32 Body mass index (BMI) 32.0-32.9, adultComments:Long discussion about thisSeems she would benefit from [facility] - she accepts referralReferral:Patient's, ChoiceRock Medication:CBD Oil - Multivitamin Adults - one tab once dailyVitamin D3 1000 Unit - one, once daily Functional Status Description No Information Available Mental Status Description No Information Available Referrals Refer to Reason for Referral Status Appt Date Patient's, Choice [facility] living - patient Created interested in dietary management of her weight and weight loss
--- OUTSIDE RECORDS SUMMARY | 2019-08-23 11:07 | XMS REPORT | Continuity of Care Document ---
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 [phone] Medicine Problems Description No Information Available Social History Type Date Description Comments Sex Unknown Tobacco Use Start: Unknown Never Smoked Cigarettes Smoking Status Reviewed: 11/26/18 Never Smoked Cigarettes ETOH Use 7-10 alcoholic [...] Unknown 50mg mouth as needed Tablets DR SHEARER Omeprazole Take one tablet Unknown 20mg Tablets [...] Available Vital Signs Date Vital Result Comment 06/25/2019 1:12pm Height 60 inches 5'0" Weight 163.50 lb Heart Rate 79 /min BP Systolic 133 mmHg BP Diastolic 83 mmHg Body Temperature 97.9 F O2 % BldC Oximetry 97 % BMI (Body Mass Index) 31.9 kg/m2 11/26/2018 10:53am Height 60 inches 5'0" Weight 160.00 lb Heart Rate 84 /min BP Systolic 122 mmHg BP Diastolic 70 mmHg Respiratory Rate 18 /min Body Temperature 98.0 F Pain Level 6 BMI (Body Mass Index) 31.2 kg/m2 Results Test Date Facility Test Result H/L Range Note Laboratory test 06/25/2019 [facility] Hemoglobin A1c <pending> finding 101 (Glyco HGB) [place] [address] [phone] CRP High Sensitivity <pending> Anti-Thyroid 06/25/2019 [facility] Thyroperoxidase AB <pending> Antibodies Screen [address] [place] [address] [phone] Thyroglobulin AB <pending> Laboratory test 06/25/2019 [facility] Copper, Serum <pending> finding [address] [place] [address] [phone] Zinc Serum <pending> Procedures Date Code Description Status 06/04/2019 55684 Shave Skin Lesion <.6CM Trunk/Arm/Leg Completed Medical Devices Description No Information Available Encounters Type Date Location Provider Dx Diagnosis Office Visit 06/04/2019 [facility] Amy Roman, L82.1 Other seborrheic 10:30a keratosis L81.4 Other melanin hyperpigmentation D22.5 Melanocytic nevi of trunk L73.8 Other specified follicular disorders L30.9 Dermatitis, unspecified D22.61 Melanocytic nevi of right upper limb, including shoulder Assessments Date Code Description Provider 06/25/2019 R53.83 Other fatigue Snow Le NP 06/25/2019 M79.7 Fibromyalgia Snow Le NP 06/25/2019 G89.4 Chronic pain syndrome Snow Le NP 06/25/2019 K58.2 Mixed irritable bowel syndrome Snow Le NP 06/25/2019 F32.9 Major depressive disorder, single episode, Snow Le NP unspecified 06/04/2019 L82.1 Other seborrheic keratosis Amy Roman MD 06/04/2019 L81.4 Other melanin hyperpigmentation Amy Roman MD 06/04/2019 D22.5 Melanocytic nevi of trunk Amy Roman MD 06/04/2019 L73.8 Other specified follicular disorders Amy Roman MD 06/04/2019 L30.9 Dermatitis, unspecified Amy Roman MD 06/04/2019 D22.61 Melanocytic nevi of right upper limb, including Amy Roman MD shoulder Plan of Treatment Future Appointment(s):07/09/2019 10:30 am - Snow Le NP at [facility]06/25/2019 - Snow Le, NPR53.83 Other fatigueFollow up:follow up in 2 weeks - 45 minuteRecommendations:Fatigue is multi-factorial food sensitivities can play a role. An elimination diet is a validated approach to try to pin point food sensitivities. Increase healthy fats in the diet with cold pressed extra virgin olive oil, flax seed, hemp oil, fish oil (wild caught EPA/DHA). Nuts, seeds, avocado. Stress can play a large role in fatigue. Daily stress relaxation techniques. Sleep: sleeping 8 hours a day. Exercise: 30-60 minutes daily of exercise. Keeping your blood sugar stable removing high glycemic foods. Adrenal fatigue (HPA [place] dysregulation) - Lifestyle changes can make a difference. Stress is a huge lumber driver. Sleep is very important as is diet and exercise. Consider stress reduction techniques. Screening Tests: It is important to be up to date on your screening tests for your age RESEARCH: LDN (low dose naltrexone)M79.7 FibromyalgiaRecommendations:Foods that can negatively impact immune function: Lectins: Lectins are carbohydrate-binding proteinsthat are present in all foods but can be difficult to digest and increase gut barrier damage. Toxic lectins are found in legumes and grains. Soaking, sprouting, and fermenting decrease lectin content. Phytic Acid: phytic acid is a component of grains, seeds, and legumes that limits the activity of digestive enzymes. This can damage the gut barrier and contribute to dysbiosis. Soaking, sprouting, andfermenting decrease phytic content. Gluten: gluten is a component of many grain products such as wheat, barley and rye. Exposure to gluten can activate zonulin in the intestines and contribute to intestinal permeability. Lactose and Casein: certain components of milk can contribute to intestinal permeability, especially if they have gone through traditional pasteurization and homogenization. The negative effects of the resulting protein changes can be decreased, as in the case of grass fed milk fromcows. Nightshades: These plants contain an alkaloid that can be detrimental to the intestinal barrier. Nightshades include tomatoes, peppers, and eggplants. What is AIP? The Paleo Autoimmune Protocol (AIP) is a way of eating to heal the gut wall, restore gut laura and in doing so reduce the chronicinflammatory response of the immune system that results in the destruction of tissue in autoimmune diseases. The main focus of the AIP is to heal the gut wall, restore digestive function, resolve microbial imbalances, restore nutrient deficiencies and support the body??s own pathways of detoxification. To do this, foods that commonly trigger an immune response are eliminated from the diet, for a period of time until symptoms have gone into remission. If there are any particular foods that you are allergic or sensitive to, even though they??re on the foods to include list, then they need to be omitted for the time being as well. There is a focus on particularly nutrient dense foods like bone broths, fermented veggies, organ meats, oily fish and oysters and a big emphasis on having a large amountof rainbow colored veggies (sometimes starting with cooked ones only if your digestion is struggling). So rather than solely focusing on the diagnosis and treating the symptomatic organ ?? like the thyroid for example ?? we need to put a huge emphasis on healing the gut. Of course you may still need some pharmaceutical support to get the affected organ or system functioning properly again, preventing further tissue damage and providing relief for what can be some really severe symptoms What canyou eat on the AIP diet? All animal proteins (excluding eggs) All vegetables (excluding nightshades)Fruits in moderation Healthy fats (avocado, olive oil, coconut oil, animal fats, etc.) Bone broth, organ meats Grain-free baking flours (cassava, tigernut, tapioca, coconut, etc.) What should you avoid? All grains (wheat, oats, rice, corn, etc.) All dairy (all dairy of all types) All legumes (all beans such as lentils, black beans, chickpeas, and vegetables like green beans as well as peanuts) Nightshade vegetables and spices (tomatoes, potatoes, eggplant, all peppers, red spices) All nuts and seeds Seed based spices (mustard , cumin, sesame, etc.) Eggs Soy Thickeners, gums, and food additives Poorquality seed oils (sunflower oil, canola oil, soybean oil, etc.) Good Resources Dr. Franklin Rodas -Ketotarian Cookbook www.[employer] - low carb/ keto diet website run by a physician great resource!! Dr. Xavi Ricci - two books: The Keiry protocol and her cookbook: Cooking for Life - (nutrient dense cookbook) The [employer] website - www.sim4tec - FREE 10 week course. HIGHLY Recommend. Plus great education blg, videos, recipes. Paleo, AIP diet, FODMAP, GAPS diet The Fibro Manual by The Immune System Recovery Plan - Dr. Steff Wilhelm MD The Body, Brain Diet - Dr. Laurence Bacon cookbooks - KetoFast and Fat for fuel - (Nutrient Dense cookbooks)G89.4 Chronic pain syndromeRecommendations:Nutrient Support for Inflammation: [place]- 3 fatty acids - 2000 mg/day (non GMO, low Mercury fish oil) Turmeric - 1000 mg/ day split in several doses Vitamin C 1000 - 2000 mg mg day Zinc 15 mg day N- acetyl cysteine 600 mg twice daily Vitamin D 2000 units/day This is also a great regimen for bone health and pain/inflammation Chondro-FLX by [employer]. Take 1 capsules three times a day. Please take without food. Provides nutritional raw materials for rebuilding and maintaining joint structure and function. CuraPro by [employer] 750 mg - Take 1 capsule twice daily. Please take with food. Potent anti-inflammatory support for daily use or as needed. Osteovantiv by [employer]. 1 cap twice daily with food. UC II collagen has been shown in clinical studies to improve joint function Ultimate Antiox Full Spectrum by [employer] for [employer]: Take 1 capsules three times daily. Please take with food. First-line defense for healthy joints. Provides necessary cellular nutrition and supports healthy inflammatory response.K58.2 Mixed irritable bowel syndromeRecommendations:If the digestive system [...] inflammatory cytokines, which affect mood) Brain fog Recommend a SIBO (small intestinal bacteria overgrowth) breath test. Unfortunately, insurance doesn't tend to cover this test. We use the [employer] and it will test for the two types of SIBO - Methane and Hydrogen. The cost is $179. We recommend you send the test in with your payment and can ask the company for a bill that you can submit to your insurance.You can pay the test in full or they will let you split the payment into 4 payments. Please contact the company if you have any questions and review the handout we have provided for you.F32.9 Major depressive disorder, single episode, unspecifiedRecommendations:Engaging any mindfulness practice daily will also help heal your HPA axis dysregulation. guided meditation, consider [facility] lily STRESS FREE. Consider MBSR (mindfulness-Based Stress Reduction) 8 week program this year. offered in [facility] every few months. Consider FREE MBSR online program: https:// [employer]/ Do ??4-7-8?? breathing: (you can you tube Chvaez Chan MD showing this technique) Breathe in through nose for 4 counts Hold your breath for 7 counts Exhale through mouth for 8 counts This combination of count ratio slows heart rate and relaxes the sympathetic nervous system. Adopt yoga practice- Available reviews of a wide range of yoga practices suggest they can reduce the impact of exaggerated stress responses and may be helpful for both anxietyand depression. In this respect, yoga functions like other self- soothing techniques, such as meditation, relaxation, exercise, or even socializing with friends. By reducing perceived stress and anxiety, yoga appears to modulate stress response systems. This, in turn, decreases physiological arousal ?? for example, reducing the heart rate, lowering blood pressure, and easing respiration. There is also evidence that yoga practices help increase heart rate variability, an indicator of the body's ability to respond to stress more flexibly. Functional Status Description No Information Available Mental Status Description No Information Available Referrals Description No Information Available
[2019-08-23 11:22] VITALS: BP 117/75
--- NOTE | 2019-08-23 11:37 | UC ---
Ear Complaint HPI - HPI Summary HPI Summary: chest congestion uri sx been going on for a few days-- no acute distress concerned because of her autoimmune disease---granddaughter who lives with her had similar sx - History of Current Complaint Chief Complaint: UCRespiratory Stated Complaint: COUGH EAR PAIN Time Seen by Provider: 08/23/19 11:28 Hx Obtained From: Patient ?: No Onset/Duration: Gradual Onset, Lasting Days, Still Present Severity Initially: Moderate Severity Currently: Moderate Pain Intensity: 6 Pain Scale Used: 0-10 Numeric Aggravating Factors: Nothing Alleviating Factors: Nothing Associated Signs/Symptoms: Positive: URI Symptoms - Allergies/Home Medications Allergies/Adverse Reactions: Allergies Allergy/AdvReac Type Severity Reaction Status Date / Time pollen extracts Allergy Unknown Verified 08/23/19 11:22 Reaction Details soy Allergy Unknown Verified 08/23/19 11:22 Reaction Details tomato Allergy Unknown Verified 08/23/19 11:22 Reaction Details Adhesive Tape AdvReac Hives Verified 08/23/19 11:22 mold AdvReac Unknown Verified 08/23/19 11:22 Reaction Details Home Medications: Home Medications Acetaminophen [Tylophen] 1,000 mg PO ONCE PRN 08/23/19 [History Confirmed ] Cbd Oil 1 dose PO BID 08/23/19 [History Confirmed 08/23/19] Venlafaxine ER (NF) [Effexor ER (NF)] 1 tab PO DAILY 08/23/19 [History Confirmed 08/23/19] PMH/Surg Hx/FS Hx/Imm Hx Previously Healthy: No - Autoimmune disorder Respiratory History: Asthma GI/ History: Gastroesophageal Reflux Psychological History: Anxiety - Surgical History Surgical History: Yes Surgery Procedure, Year, and Place: CSP FUSION SURGERY 10+ YRS AGO Xs 2,. GALLBLADDER 1985,. TENDON REPAIR RIGHT FOOT,. TUBAL,. [place]. carpal tunnel;. RIGHT THUMB JOINT REPLACEMENT 2013 [place]. TENDON RELEASE, Rt WRIST. LITHOTRIPSY. TEMP. KIDNEY STENTS - FOR STONES & REMOVED. L7-8 discectomy. spinal stimulator implant - Family History Known Family History: Positive: None - Social History Occupation: Retired Lives: With Family Alcohol Use: Daily Alcohol Amount: one a day Substance Use Type: None Smoking Status (MU): Never Smoked Tobacco - Immunization History Most Recent Influenza Vaccination: 2011 Most Recent Tetanus Shot: 2008 Most Recent Pneumonia Vaccination: in past Review of Systems All Other Systems Reviewed And Are Negative: Yes Constitutional: Positive: Negative Skin: Positive: Negative Eyes: Positive: Negative ENT: Positive: Sore Throat, Nasal Discharge, Sinus Congestion Respiratory: Positive: Cough Cardiovascular: Positive: Negative Gastrointestinal: Positive: Negative Genitourinary: Positive: Negative Motor: Positive: Negative Neurovascular: Positive: Negative Musculoskeletal: Positive: Negative Neurological: Positive: Negative Psychological: Positive: Negative Is Patient Immunocompromised?: No Physical Exam Triage Information Reviewed: Yes Appearance: Well-Appearing, No Pain Distress, Well-Nourished, Obese Vital Signs: Initial Vital Signs Temp 98.2 F 08/23/19 11:16 Pulse 72 08/23/19 11:16 Resp 18 08/23/19 11:16 BP 117/75 08/23/19 11:16 Pulse Ox 96 08/23/19 11:16 Vital Signs Reviewed: Yes Eye Exam: Normal Eyes: Positive: Conjunctiva Clear ENT Exam: Normal ENT: Positive: Normal ENT inspection, Hearing grossly normal, Pharynx normal, TMs normal, Sinus tenderness, Uvula midline. Negative: Nasal congestion, Tonsillar swelling, Trismus, Muffled voice, Hoarse voice, Dental tenderness Dental Exam: Normal Neck exam: Normal Neck: Positive: Supple, Nontender, No Lymphadenopathy Respiratory Exam: Normal Respiratory: Positive: Chest non-tender, Lungs clear, Normal breath sounds, No respiratory distress, No accessory muscle use Cardiovascular Exam: Normal Cardiovascular: Positive: RRR, No Murmur, Pulses Normal, Brisk Capillary Refill Musculoskeletal Exam: Normal Musculoskeletal: Positive: Strength Intact, ROM Intact, No Edema Neurological Exam: Normal Neurological: Positive: Alert, Muscle Tone Normal Psychological Exam: Normal Skin Exam: Normal Re-Evaluation - Re-Evaluation First Eval Change: Improved - increase increase aeration resolve chest tightness Ear Complaint Course/Dx - Course Course Of Treatment: increase fluids, albuterol mdi with spacer follow with pcp this week - Differential Dx/Diagnosis Provider Diagnosis: Post-viral cough syndrome Discharge ED - Sign-Out/Discharge Documenting (check all that apply): Patient Departure All imaging exams completed and their final reports reviewed: No Studies - Discharge Plan Condition: Stable Disposition: HOME Prescriptions: Albuterol HFA INHALER* [Ventolin HFA Inhaler*] 2 puff INH Q4H PRN #1 mdi PRN Reason: chest congestion/cough Patient Education Materials: Bronchospasm (ED), How to Use a Metered-Dose Inhaler and a Spacer (ED) Referrals: Snow Jones DO [Primary Care Provider] - If Needed - Billing Disposition and Condition Condition: STABLE Disposition: Home - Attestation Statements Provider Attestation: I was available for consult. This patient was seen by the EULOGIO. The patient was not presented to , seen by or examined by mo -Amilcar Arora MD
[2019-08-23] MEDS ORDERED: Albuterol/Ipratropium NEB.SOL* Albuterol 2.5 MG/Ipratropium 0.5 MG 3 ML INH ONE (11:39)
== END 2019-08-23 12:27 | disposition home or self-care (01) ==
LOC: UCEAST 10:58
DX: R05 Cough (principal); J45.909 Unspecified asthma, uncomplicated; F41.9 Anxiety disorder, unspecified; R09.89 Other specified symptoms and signs involving the circulatory and respiratory systems; J02.9 Acute pharyngitis, unspecified; Z79.899 Other long term (current) drug therapy; Z91.09 Other allergy status, other than to drugs and biological substances; Z91.018 Allergy to other foods
CPT/HCPCS: 99212; A9270-GY; G0463

== ENCOUNTER 2021-09-09 06:52 | Observation (INO) ==
[~2021-09-09 06:52] MED LIST changes: -Acetaminophen TAB* 325 MG PO PRN; +Buffered Lidocaine 1% SYRIN 1 ml INTRADERM ONE; -Buffered Lidocaine 1% SYRIN* 1 ML/SYRINGE INTRADERM ONE; +Lactated Ringers 1000 ml BAG 1,000 ML IV SCH
[2021-09-09] MEDS ORDERED: ceFAZolin 2 GM PREMIX 2 GM/50 ML BAG ONE (07:16)
[2021-09-09] MEDS ORDERED: Ropivacaine 5 MG/ML 20 ML VIAL 0.5% (100 MG) ONE (07:58)
[2021-09-09] MEDS ORDERED: Midazolam 2 mg/2 ml VIAL 1 mg/ml 2 ml VIAL (2 mg) ONE (08:05)
[2021-09-09] MEDS ORDERED: Dexamethasone IV 4 MG/ML VIAL 1 ml VIAL ONE ×2 (08:05→08:18)
[2021-09-09] MEDS ORDERED: Bupivacaine 0.5% SDV PF 30ML VIAL ONE (08:06)
[2021-09-09] MEDS ORDERED: fentaNYL 250 mcg/5 ml 50 MCG/ML 5 ml VIAL (250 MCG) ONE (08:18)
[2021-09-09] MEDS ORDERED: Ondansetron 4 mg VIAL 2 MG/ML 2 ml VIAL ONE (08:18)
[2021-09-09] MEDS ORDERED: Rocuronium 50 mg VIAL 10 mg/ml 5 ml VIAL (50 mg) ONE (08:18)
[2021-09-09] MEDS ORDERED: Lidocaine 2% PF 5 ML VIAL ONE (08:18)
[2021-09-09] MEDS ORDERED: Propofol 10 MG/ML 20 ML BTL ONE (08:18)
[2021-09-09] MEDS ORDERED: Lidocaine 1% MPF 5 ML VIAL ONE (08:27)
[2021-09-09] MEDS ORDERED: Magnesium Hydroxide LIQ 30 ML UDC PO PRN (08:56)
[2021-09-09] MEDS ORDERED: diPHENhydraMINE IV 50 MG/ML 1 ml VIAL (BENADRYL) IV PRN ×2 (08:56→09:52)
[2021-09-09] MEDS ORDERED: Ondansetron 4 mg VIAL 2 MG/ML 2 ml VIAL IV PRN ×2 (08:56→09:52)
[2021-09-09] MEDS ORDERED: Lactulose 30 ml UDC PO PRN (08:56)
[2021-09-09] MEDS ORDERED: diPHENhydraMINE 25 mg TAB PO PRN (08:56)
[2021-09-09] MEDS ORDERED: Morphine 2 MG/ML SYRINGE IV PRN (08:56)
[2021-09-09] MEDS ORDERED: Ondansetron ODT 4 mg TAB 4 MG TAB PO PRN (08:56)
[2021-09-09] MEDS ORDERED: Acetaminophen IV 1 GM/100ML 100 ML IV ONE (09:49)
[2021-09-09] MEDS ORDERED: HYDROmorphone 0.5 MG/0.5 ML SYRINGE ONE (09:52)
[2021-09-09] MEDS ORDERED: fentaNYL 100 mcg/2 ml 50 MCG/ML VIAL IV PRN (09:52)
[2021-09-09] MEDS ORDERED: Naloxone 0.4 mg VIAL 0.4 mg/ml 1 ml VIAL IV PRN (09:52)
[2021-09-09] MEDS ORDERED: HYDROmorphone 1 MG/1 ML SYRINGE IV PRN (09:52)
[2021-09-09] MEDS ORDERED: DiMENhydriNATE IV 50 mg/ml 1 ml VIAL IV PUSH PRN (09:52)
[2021-09-09] MEDS ORDERED: Phenylephrine IV 10 MG/ML 1 ml VIAL ONE (10:00)
[2021-09-09] MEDS: Lactated Ringers 1000 ml BAG 1,000 ML IV SCH (12:46)
[2021-09-09] MEDS: Magnesium Hydroxide LIQ 30 ML UDC PO SCH ×2 (15:12→21:42)
[2021-09-09] MEDS: Vitamin THERAPEUTIC TAB PO SCH (15:12)
[2021-09-09] MEDS: ceFAZolin 1 GM ADVAN 1 GM in NS 0.9% 50 ML 50 ML IVPB SCH (17:45)
[2021-09-10] MEDS: ceFAZolin 1 GM ADVAN 1 GM in NS 0.9% 50 ML 50 ML IVPB SCH ×2 (01:29→08:40)
[2021-09-10] MEDS: Lactated Ringers 1000 ml BAG 1,000 ML IV SCH (01:33)
[2021-09-10 07:15] LABS: Hematocrit 35 % (35-47); Hemoglobin 11.5 g/dL (12.0-16.0); Mean Platelet Volume 8.7 fL (7.4-10.4); Platelet Count 240 10^3/uL (150-450)
[2021-09-10 07:36] LABS: CO2 Carbon Dioxide 19 mmol/L (22-32); Calcium 8.5 mg/dL (8.6-10.3); Chloride 106 mmol/L (101-111); Sodium 136 mmol/L (135-145)
[2021-09-10 07:42] LABS: Blood Urea Nitrogen 12 mg/dL (6-24); Glucose 111 mg/dL (70-100); eGFR CKD-EPI 97.1 (>60)
[2021-09-10 07:53] LABS: Anion Gap 11 mmol/L (2-11)
[2021-09-10] MEDS: Vitamin THERAPEUTIC TAB PO SCH (08:31)
[2021-09-10] MEDS: Magnesium Hydroxide LIQ 30 ML UDC PO SCH (08:32)
[2021-09-10] MEDS ORDERED: Venlafaxine XR 75 mg PO SCH (09:00)
[2021-09-10 12:15] VITALS: BP 130/73
== END 2021-09-10 16:00 | disposition home or self-care (01) ==
LOC: INTOOBSV 06:52 → AA 06:52 → SSU 11:47
PROVIDERS: ADMIT Orthopaedic Surgery Adult Reconstructive Orthopaedic Surgery; ATTEND Orthopaedic Surgery Adult Reconstructive Orthopaedic Surgery

== ENCOUNTER 2022-09-20 07:42 | Observation (INO) ==
[~2022-09-20 07:42] MED LIST changes: +Famotidine IV 10 MG/ML 2 ml VIAL (20 mg) IV ONE; +Lidocaine 2% PF 5 ML VIAL ONE; +Propofol 10 MG/ML 20 ML BTL ONE; +Rocuronium 50 mg VIAL 10 mg/ml 5 ml VIAL (50 mg) ONE; +fentaNYL 100 mcg/2 ml 50 MCG/ML VIAL ONE
[2022-09-20] MEDS ORDERED: Famotidine IV 10 MG/ML 2 ml VIAL (20 mg) ONE ×2 (08:07→08:41)
[2022-09-20] MEDS ORDERED: ceFAZolin 2 GM PREMIX 2 GM/50 ML BAG ONE (08:07)
[2022-09-20] MEDS ORDERED: Chlorhexidine MOUTHWASH 0.12% 15 ML UDC ONE (08:11)
[2022-09-20] MEDS ORDERED: Thrombin 5,000 UNITS 1 APPLIC KIT - topical use - TOPICAL ONE (09:13)
[2022-09-20] MEDS ORDERED: ceFAZolin VIAL VIAL ONE (09:14)
[2022-09-20] MEDS ORDERED: Gelfoam Sponge SIZE 100 SPONGE ONE (09:14)
[2022-09-20] MEDS ORDERED: Dexamethasone IV 4 MG/ML VIAL 1 ml VIAL ONE (10:09)
[2022-09-20] MEDS ORDERED: Midazolam 2 mg/2 ml VIAL 1 mg/ml 2 ml VIAL (2 mg) ONE (10:09)
[2022-09-20] MEDS ORDERED: fentaNYL 100 mcg/2 ml 50 MCG/ML VIAL IV PRN (10:12)
[2022-09-20] MEDS ORDERED: Naloxone 0.4 mg VIAL 0.4 mg/ml 1 ml VIAL IV PRN (10:12)
[2022-09-20] MEDS ORDERED: HYDROmorphone 1 MG/1 ML SYRINGE IV PRN (10:12)
[2022-09-20] MEDS ORDERED: Phenylephrine 40 mcg/mL 10mL (400mcg) SYRINGE ONE (10:34)
[2022-09-20] MEDS ORDERED: Ondansetron 4 mg VIAL 2 MG/ML 2 ml VIAL ONE (10:37)
[2022-09-20] MEDS ORDERED: Ondansetron 4 mg VIAL 2 MG/ML 2 ml VIAL IV PRN (10:50)
[2022-09-20] MEDS ORDERED: Morphine 2 MG/ML SYRINGE IV PRN (10:56)
[2022-09-20] MEDS: Lactated Ringers 1000 ml BAG 1,000 ML IV SCH (14:03)
[2022-09-20] MEDS: HYDROcodone/ACETAMIN 5/325 mg TAB PO PRN ×2 (14:08→21:18)
[2022-09-20] MEDS ORDERED: Cholecalciferol (VIT D3) 1,000 unit TAB PO SCH (21:00)
[2022-09-21] MEDS: HYDROcodone/ACETAMIN 5/325 mg TAB PO PRN ×2 (00:57→09:39)
[2022-09-21] MEDS: Lactated Ringers 1000 ml BAG 1,000 ML IV SCH (03:30)
[2022-09-21 08:44] VITALS: BP 112/69
== END 2022-09-21 11:20 | disposition home or self-care (01) ==
LOC: SSU 07:42 → OR 07:42
PROVIDERS: ADMIT Neurological Surgery; ATTEND Neurological Surgery